=== PATIENT | female | born 1965 ===

== ENCOUNTER 2025-04-12 19:38 | Emergency (ER) | payer MEDICAID ==
[~2025-04-12] VITALS: Ht 157.5 cm; Wt 54.2 kg
[2025-04-12 19:41] VITALS: BP 146/96; PULSE 99; RESP 16; TEMP 98.2; O2SAT 98
[2025-04-12 20:11] LABS: MEAN PLATELET VOLUME 8.1 FL (7.4-10.4); RED CELL DISTRIBUTION WIDTH 13.9 % (11.5-14.5)
[2025-04-12 20:39] LABS: CREATININE 1.00 MG/DL (0.40-0.90); TOTAL CARBON DIOXIDE 25.0 MMOL/L (24-32); eCRCL 47 ML/MIN; eGFR 57 ML/MIN
== END 2025-04-12 22:20 | disposition left against medical advice (07) ==
LOC: EDBD 19:39 → ER 19:39
DX: R41.0 Disorientation, unspecified (principal); Z53.21 Procedure and treatment not carried out due to patient leaving prior to being seen by health care provider
CPT/HCPCS: 36415; 80053; 82948; 85025